=== PATIENT | female | born 1990 | race African-American/Black ===

== ENCOUNTER 2016-05-23 22:54 | Emergency (ER) | payer SELFPAY ==
[~2016-05-23 22:54] MED LIST: PANT20 PO
[2016-05-23 22:58] VITALS: BP 130/72; PULSE 90; RESP 18; TEMP 98.2; O2SAT 98
== END 2016-05-23 23:00 | disposition left against medical advice (07) ==
LOC: NED 22:54
DX: S61.219A Laceration without foreign body of unspecified finger without damage to nail, initial encounter (principal)
CPT/HCPCS: 99281